=== PATIENT | male | born 1955 | race Caucasian/White ===

== ENCOUNTER 2019-01-30 11:01 | Emergency (ER) | payer BC ==
[2019-01-30 11:41] VITALS: BP 185/98
[2019-01-30] MEDS ORDERED: methylPREDNISolone 125 MG* 2 ML VIAL IM ONE (12:36)
--- NOTE | 2019-01-30 12:42 | UC ---
Lower Extremity/Ankle HPI - HPI Summary HPI Summary: 63-year-old male comes in with a chief complaint of bilateral foot pain. Patient's pain started in the left MTP joint and it's the same as his gout. He was started on indomethacin 25 mg 3 times daily. Then increased at 50 mg 3 times a day as was not improving. Initially the pain was just in the left MTP joint. The pain is now spreading to the left ankle and now is also having pain in the right ankle. No known trauma. No fevers or chills feels well otherwise. No history of kidney or liver problems. Reports he's tried steroids colchicine in the past and both have helped. - History of Current Complaint Chief Complaint: UCLowerExtremity Stated Complaint: FOOT PAIN Time Seen by Provider: 01/30/19 12:01 Pain Intensity: 7 - Allergies/Home Medications Allergies/Adverse Reactions: Allergies Allergy/AdvReac Type Severity Reaction Status Date / Time No Known Allergies Allergy Verified 01/30/19 11:35 Home Medications: Home Medications Indomethacin ER* [Indocin ER] 25 mg PO TID 01/30/19 [History Confirmed 01/30/19] Losartan TAB* [Cozaar TAB*] 50 mg PO DAILY 01/30/19 [History Confirmed 01/30/19] PMH/Surg Hx/FS Hx/Imm Hx Previously Healthy: Yes - GOUT Cardiovascular History: Hypertension - Surgical History Surgical History: Yes Surgery Procedure, Year, and Place: ROTATOR CUFF REPAIR - Family History Known Family History: Positive: Non-Contributory - Social History Alcohol Use: Occasionally Substance Use Type: None Smoking Status (MU): Former Smoker Review of Systems All Other Systems Reviewed And Are Negative: Yes Constitutional: Positive: Negative Skin: Positive: Other - LEFT MTP ERYTHEMA Eyes: Positive: Negative ENT: Positive: Negative Respiratory: Positive: Negative Cardiovascular: Positive: Negative Gastrointestinal: Positive: Negative Motor: Positive: Negative Neurovascular: Positive: Negative Musculoskeletal: Positive: Other: - SEE HPI Neurological: Positive: Negative Psychological: Positive: Negative Is Patient Immunocompromised?: No Physical Exam Triage Information Reviewed: Yes Appearance: Well-Appearing, Well-Nourished, Pain Distress - MILD Vital Signs: Initial Vital Signs Temp 99.2 F 01/30/19 11:37 Pulse 87 01/30/19 11:37 Resp 15 01/30/19 11:37 BP 185/98 01/30/19 11:37 Pulse Ox 98 01/30/19 11:37 Vital Signs Reviewed: Yes Eye Exam: Normal Eyes: Positive: Conjunctiva Clear Neck: Positive: Supple Respiratory: Positive: No respiratory distress Musculoskeletal: Positive: Strength Intact, ROM Intact, Other: - Left MTP is slightly swollen and erythematous and warm to touch. He is tender proximally from the MTP into the medial left ankle. Also has some tenderness in the same distribution on the right side although it's less severe. Normal capillary refill normal sensation. Neurological: Positive: Alert, Muscle Tone Normal Psychological: Positive: Age Appropriate Behavior Skin: Positive: Other - ERYTHEMA LEFT MTP Lower Extremity Course/Dx - Course Course Of Treatment: Patient's failing the indomethacin treatment. He reports that he's received a shot of steroids in the past and also colchicine and helped. In clinic he was given cimetidine 01 125 mg IM. I wrote a prescription for colchicine we discussed how to use the colchicine. Patient follow-up with primary care doctor get reevaluated sooner. If questions or concerns. - Differential Dx/Diagnosis Provider Diagnosis: Gout Discharge - Sign-Out/Discharge Documenting (check all that apply): Patient Departure All imaging exams completed and their final reports reviewed: No Studies - Discharge Plan Condition: Stable Disposition: HOME Prescriptions: Colchicine [Mitigare] 0.6 mg PO SEE INSTRUCTIONS PRN #10 capsule MDD 1.8MG PRN Reason: Pain Patient Education Materials: Gout (ED) Referrals: Taj Johansen MD [Primary Care Provider] - Additional Instructions: FOLLOW UP WITH YOUR DOCTOR IF NOT COMPLETELY IMPROVED. GET REEVALUATED SOONER IF WORSE OR ANY QUESTIONS OR CONCERNS. - Billing Disposition and Condition Condition: STABLE Disposition: Home
== END 2019-01-30 12:52 | disposition home or self-care (01) ==
LOC: UCCORT 11:01
DX: M10.9 Gout, unspecified (principal); I10 Essential (primary) hypertension; Z87.891 Personal history of nicotine dependence
CPT/HCPCS: 96372; 99202; G0463; J2930

== ENCOUNTER → 2019-04-15 05:36 | Day surgery (SDC) | payer BC ==
[~2019-04-15 05:36] MED LIST: Buffered Lidocaine 1% SYRIN* 1 ML/SYRINGE INTRADERM ONE; Dexamethasone IV* 4 MG/ML 1 ML (4 MG) IV SLOW PU ONE; Dexamethasone IV* 4 MG/ML 1 ML (4 MG) ONE; Famotidine IV* 10 MG/ML 2 ML (20 mg) IV ONE; Famotidine IV* 10 MG/ML 2 ML (20 mg) ONE; Lactated Ringers 1000 ML Bag* 1,000 ML IV SCH; ceFAZolin 2 GM in NS PREMIX(*) 0 GM/0 ML BAG IVPB ONE
[2019-04-15 06:31] VITALS: BP 194/112
== END | disposition home or self-care (01) ==
LOC: OR 05:36
PROVIDERS: ATTEND Orthopaedic Surgery Adult Reconstructive Orthopaedic Surgery
DX: M25.561 Pain in right knee (principal); Z53.09 Procedure and treatment not carried out because of other contraindication; I10 Essential (primary) hypertension
CPT/HCPCS: J0690; J1100